=== PATIENT | female | born 1960 | race Caucasian/White ===

== ENCOUNTER 2023-08-20 20:03 | Emergency (ER) | payer SELFPAY ==
--- NOTE | 2023-08-20 20:24 | ERPHSYRPT ---
- History of Present Illness Time Seen by Provider: 08/20/23 20:24 Source: patient Exam Limitations: no limitations Physician History: This is a right-handed 62-year-old white female patient who suffered a dog bite to her right forearm and hand as well as superficial scratch to her left forearm. She also has an abrasion on her left knee. This occurred prior to arrival. Patient's tetanus status is not up-to-date. She is uncertain whether she wants a tetanus injection. Patient did not hit her head. She has no neck pain she has no headache pain. There is no loss of consciousness. Patient is refusing narcotic pain medicine. She does not want any pain medicine of any type at this time. Timing/Duration: today, sudden Quality: painful Severity: mild Location: extremities (To moderate right hand, right forearm, left forearm) Possible Causes: other Associated Symptoms: denies symptoms Allergies/Adverse Reactions: Sulfa (Sulfonamide Antibiotics) Allergy (Verified 08/20/23 20:18) Rash azithromycin Adverse Reaction (Verified 08/20/23 20:18) Vomiting Travel Risk - International Travel Have you traveled outside of the country in past 3 weeks: No - Emerging Infectious Disease Are you exhibiting symptoms associated with any current EIDs: No - Review of Systems Constitutional: No Symptoms Eyes: No Symptoms Ears, Nose, & Throat: No Symptoms Respiratory: No Symptoms Cardiac: No Symptoms Abdominal/Gastrointestinal: No Symptoms Genitourinary Symptoms: No Symptoms Musculoskeletal: No Symptoms Skin: Other (Dog bite to right hand and mid right forearm. Dog scratch left forearm. Abrasion left knee) Neurological: No Symptoms Psychological: No Symptoms Endocrine: No Symptoms Hematologic/Lymphatic: No Symptoms Immunological/Allergic: No Symptoms All Other Systems: Reviewed and Negative - Past Medical History Pertinent Past Medical History: No - Past Surgical History Past Surgical History: Yes - Nursing Vital Signs Nursing Vital Signs: Initial Vital Signs Temperature 97.9 F 08/20/23 20:20 Pulse Rate 99 H 08/20/23 20:20 Respiratory Rate 18 08/20/23 20:20 Blood Pressure 155/80 08/20/23 20:20 O2 Sat by Pulse Oximetry 98 08/20/23 20:20 Pain Scale Pain Intensity 7 - Physical Exam General Appearance: no apparent distress, alert, thin Eye Exam: PERRL/EOMI, eyes nml inspection Ears, Nose, Throat Exam: normal ENT inspection, moist mucous membranes Neck Exam: normal inspection, non-tender, supple, full range of motion Respiratory Exam: airway intact, No chest tenderness, No respiratory distress Cardiovascular Exam: regular rate/rhythm, normal heart sounds, normal peripheral pulses Gastrointestinal/Abdomen Exam: soft, normal bowel sounds, No tenderness Pelvic Exam: not done Rectal Exam: not done Back Exam: normal inspection, normal range of motion, No CVA tenderness, No vertebral tenderness Extremity Exam: normal range of motion, swelling (Bilateral forearms), tenderne ss ( dorsally bilateral forearms dorsally), other (Dog bite to bilateral forearm dorsally and dorsal right hand), No deformities Neurologic Exam: alert, oriented x 3, cooperative, 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 tested, normal mood/affect, nml cerebellar function, nml station & gait, sensation nml Skin Exam: abrasion (Left knee anteriorly), other (Dog bite to bilateral forearms dorsally) Lymphatic Exam: No adenopathy SpO2 Interpretation: normal O2 Delivery: Room Air - Course Nursing assessment & vital signs reviewed: Yes Ordered Tests: Active Orders 24 hr Category Date Time Status FOREARM Stat Exams 08/20/23 20:21 Taken HAND (MINIMUM 3 VIEWS) Stat Exams 08/20/23 20:21 Taken - Progress Progress: unchanged Progress Note: 08/20/23 21:08 My medical decision making and the assignment of low to moderate complexity of this patient's medical issue today is based on review of the patient's past medical history, review of the patient's medication list, review of patient drug allergy list, history present illness and physical findings on examination. X- ray of the patient's right hand and right forearm is included in the workup. No laboratory studies are necessary. Patient was offered tetanus update injection. She is still undecided. She was told that she has 10 days to make that decision. She only wants to use Tylenol and ibuprofen medication. She does not want any narcotics. We will provide her with an Augmentin medication here in the emergency department which she will take when she gets home. That way she can take it with her food. I will remotely send her a 5-day prescription to her pharmacy. 08/20/23 21:10 I interpreted the x-ray of the patient's right forearm. There is no evidence of an acute fracture or dislocation. The wrist is intact without evidence of any acute fracture or dislocation. I interpreted the x-ray of the patient's right hand. There is no evidence of an acute fracture or dislocation. Counseled pt/family regarding: diagnosis, need for follow-up, rad results Medical Desision Making - Independent Historian Additional History obtained from: Spouse - Diagnostic Testing Diagnostic test were ordered, analyzed, and reviewed by me: Yes Radiological Interpretation: Interpreted by me - Risk of complications The pt has a mod risk of morbidity or mortality based on: Need for prescription drug management - Departure Departure Disposition: Home Clinical Impression: Dog bite of right arm Condition: Stable Critical Care Time: No Referrals: ARUN CHRISTOPHER NP [Primary Care Provider] - Follow up/PCP as directed Additional Instructions: Keep the dog bite sites and abrasion sites clean with soap and water daily. Cover each site with a bandage. Avoid lotions or ointments or creams to dog bite sites. Take your antibiotics as prescribed. Use Tylenol and ibuprofen for pain control. Make a decision whether or not you want to receive a tetanus update prior to 10 days from today. Prescriptions: Amoxicillin/Potassium Clav [Augmentin 500-125 Tablet] 1 each PO TID 7 Days #15 tablet
[2023-08-20 20:44] VITALS: TEMP 97.9
[2023-08-20] MEDS ORDERED: Augmentin 500-125 Tablet ONE (21:17)
[2023-08-20] MEDS: Augmentin 500-125 Tablet PO ONE (21:20)
[2023-08-20] MEDS ORDERED: Adacel Vial IM ONE (21:24)
--- NOTE | 2023-08-20 21:24 | XRAY ---
Indication: Pain following dog bite. Comparison: None 3 view right hand obtained. No bony, articular, or soft tissue abnormalities.
--- NOTE | 2023-08-20 21:24 | XRAY ---
Indication: Pain following dog bite. Comparison: None 2 view right forearm obtained. No bony, articular, or soft tissue abnormalities.
[2023-08-20] MEDS: Adacel Vial IM ONE (21:27)
[2023-08-20 22:00] VITALS: RESP 14; O2SAT 99
[2023-08-20 22:01] VITALS: BP 134/84; PULSE 85
== END 2023-08-20 22:07 | disposition home or self-care (01) ==
LOC: ED 20:03
DX: S50.871A Other superficial bite of right forearm, initial encounter (principal); S50.872A Other superficial bite of left forearm, initial encounter; S60.571A Other superficial bite of hand of right hand, initial encounter; W54.0XXA Bitten by dog, initial encounter; Y93.K1 Activity, walking an animal; Y92.414 Local residential or business street as the place of occurrence of the external cause; Z23 Encounter for immunization
CPT/HCPCS: 73090; 73130; 90471; 90715; 99283; A9270-GY